=== PATIENT | female | born 2000 | race Caucasian/White ===

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

== ENCOUNTER → 2021-02-15 | Outpatient (REF) | LOC: M LABSMTC 12:13 | PROVIDERS: ATTEND Pediatrics | DX: Z20.822 Contact with and (suspected) exposure to COVID-19 (principal) ==

== ENCOUNTER → 2021-03-15 | Outpatient (REF) | LOC: M LABSMTC 13:49 | PROVIDERS: ATTEND Pediatrics | DX: Z20.822 Contact with and (suspected) exposure to COVID-19 (principal) ==

== ENCOUNTER 2022-05-21 20:17 | Emergency (ER) | payer BC ==
[~2022-05-21] VITALS: Ht 167.6 cm; Wt 85.0 kg
[2022-05-21] MEDS ORDERED: ASPIRIN 81MG CHEW TABLET PO ONE (20:50)
[2022-05-21] MEDS ORDERED: ALPRAZolam 0.25 MG TAB PO ONE (20:50)
[2022-05-21] MEDS ORDERED: NS 1,000 ML IV SCH (20:50)
[2022-05-21 21:23] LABS: BASO # 0.1 10^3/uL (0.0-0.2); BASO % 0.5 % (0.0-1.0); EOS # 0.4 10^3/uL (0.0-0.5); EOS % 3.3 % (0.0-3.0); HEMATOCRIT 44.4 % (36.0-47.0); HEMOGLOBIN 15.3 g/dl (12.0-15.5); LYMPH % 17.2 % (24.0-44.0); MEAN CORPUSCULAR HEMOGLOBIN 31.3 pg (27.0-33.0); MEAN CORPUSCULAR HGB CONC 34.5 g/dl (32.0-36.5); MEAN CORPUSCULAR VOLUME 90.8 fl (80.0-96.0); MONO # 0.8 10^3/uL (0.0-0.8); NEUTROPHILS # 8.1 10^3/uL (1.5-8.5); NEUTROPHILS % 71.7 % (36.0-66.0); PLATELET COUNT, AUTOMATED 329 10^3/uL (150-450); RED BLOOD COUNT 4.89 10^6/uL (4.00-5.40); WHITE BLOOD COUNT 11.3 10^3/uL (4.0-10.0)
[2022-05-21 21:39] LABS: INR 0.96
[2022-05-21 21:50] LABS: LIPASE 34 U/L (12-53)
[2022-05-21 21:52] LABS: CPK CREATINE PHOSPHOKINASE 58 U/L (34-145)
[2022-05-21 21:56] LABS: HCG, SERUM QUALITATIVE NEGATIVE (NEGATIVE)
[2022-05-21 22:08] LABS: ALBUMIN 4.4 G/DL (3.2-5.2); ALKALINE PHOSPHATASE 77 U/L (46-116); ALT/SGPT 18 U/L (7.0-40); AST/SGOT 16 U/L (<34); BILIRUBIN,DIRECT < 0.1 MG/DL (<0.4); BILIRUBIN,TOTAL 0.3 MG/DL (0.3-1.2); BLOOD UREA NITROGEN 13 MG/DL (9-23); CALCIUM LEVEL 9.5 MG/DL (8.5-10.1); CARBON DIOXIDE LEVEL 24 MMOL/L (20-31); CHLORIDE LEVEL 105 MMOL/L (98-107); CK-MB VALUE MASS < 1.0 NG/ML (<3.6); FREE T4 1.09 NG/DL (0.83-1.43); GLUCOSE, FASTING 113 MG/DL (60-100); MB/CK RELATIVE INDEX 1.72 (< OR =4); POTASSIUM SERUM 3.7 MMOL/L (3.5-5.1); SODIUM LEVEL 138 MMOL/L (136-145); THYROID STIMULATING HORMONE 1.719 uIU/ML (0.48-4.17)
[2022-05-21 22:12] LABS: RSV AMPLIFICATION NEGATIVE (NEGATIVE)
[2022-05-21 22:19] LABS: D-DIMER QUANT < 270 ng/ml (<500)
[2022-05-21 22:43] LABS: TOTAL PROTEIN 7.4 G/DL (5.7-8.2)
[2022-05-21 22:49] VITALS: BP 111/68
== END 2022-05-21 22:50 | disposition home or self-care (01) ==
LOC: M ED 20:17
DX: R00.2 Palpitations (principal); Z79.899 Other long term (current) drug therapy

== ENCOUNTER → 2022-10-30 | Outpatient (REF) | payer BC ==
[2022-10-30 18:44] LABS: GC DNA AMPLIFICATION NEGATIVE (NEGATIVE)
== END ==
LOC: M SFHCADAM 15:32
PROVIDERS: ATTEND Physician Assistant
DX: Z72.51 High risk heterosexual behavior (principal)